=== PATIENT | female | born 1985 | race Caucasian/White ===

== ENCOUNTER 2018-04-09 20:48 | Emergency (ER) | payer MEDICAID ==
[~2018-04-09 20:48] MED LIST: HYDR-4383 PO; IBUP-1984 PO
== END 2018-04-09 21:42 | disposition left against medical advice (07) ==
LOC: ER 20:49
DX: R21 Rash and other nonspecific skin eruption (principal); Z11.3 Encounter for screening for infections with a predominantly sexual mode of transmission; Z53.21 Procedure and treatment not carried out due to patient leaving prior to being seen by health care provider

== ENCOUNTER 2018-05-12 22:48 | Emergency (ER) | payer MEDICAID ==
[~2018-05-12] VITALS: Ht 162.6 cm; Wt 50.6 kg
[2018-05-12] MEDS ORDERED: azithromycin 250mg tablet PO ONE (23:35)
[2018-05-12] MEDS ORDERED: CefTRIAXone 250MG inj IM ONE (23:35)
[2018-05-12] MEDS ORDERED: penicillin G benzathine 1.2 million unit/2ml syringe IM ONE (23:35)
[2018-05-12] MEDS ORDERED: CefTRIAXone 250MG IM Kit w/LIDOcaine IM ONE (23:45)
[2018-05-13 00:19] LABS: CLARITY,URINE CLEAR (Clear); COLOR,URINE YELLOW (Yellow); GLUCOSE, URINE NEGATIVE (Neg); KETONES,URINE NEGATIVE (Neg); LEUKOCYTE ESTERASE ,URINE MODERATE (Neg); NITRITES, URINE NEGATIVE (Neg); OCCULT BLOOD,URINE NEGATIVE (Neg); PROTEIN,URINE NEGATIVE (Neg); UROBILINOGEN,URINE 0.2 E.U/dL (0.2-1.0)
[2018-05-13 00:21] LABS: UA COLLECTION TYPE CLN CATCH MIDSTREAM
[2018-05-13 00:27] LABS: SQUAMOUS EPITHELIAL CELL,UR MODERATE /LPF (FEW)
[2018-05-13 00:28] LABS: BACTERIA,URINE FEW /HPF (Neg); RBC,URINE 0-2 /HPF (0-2); TRICHOMONAS,URINE MOD /HPF (NEGATIVE); WBC,URINE 0-4 /HPF (0-4)
[2018-05-13 00:29] LABS: HIV ANTIBODY 1&2 RAPID NON-REACTIVE (Neg)
[2018-05-13] MEDS ORDERED: METR-159 PO (00:31)
[2018-05-13 00:46] VITALS: BP 116/78
[2018-05-14 08:15] LABS: RPR Reactive (Non Reactive)
== END 2018-05-13 01:13 | disposition home or self-care (01) ==
LOC: ER 22:48
DX: A64 Unspecified sexually transmitted disease (principal); A53.9 Syphilis, unspecified; A59.00 Urogenital trichomoniasis, unspecified; G89.29 Other chronic pain; F11.10 Opioid abuse, uncomplicated; F15.10 Other stimulant abuse, uncomplicated; F17.200 Nicotine dependence, unspecified, uncomplicated; Z90.49 Acquired absence of other specified parts of digestive tract; Z56.0 Unemployment, unspecified; Z88.2 Allergy status to sulfonamides; Z79.899 Other long term (current) drug therapy
CPT/HCPCS: 36415; 81001; 86592; 86703; 87210; 87491; 87591; 96372; 99283; J0561; J0696

== ENCOUNTER 2018-11-01 06:40 | Emergency (ER) | payer MEDICAID ==
[~2018-11-01] VITALS: Ht 162.6 cm; Wt 67.7 kg
[2018-11-01] MEDS ORDERED: CLIN150C8 PO (07:22)
[2018-11-01] MEDS ORDERED: CEPH250T PO (07:22)
[2018-11-01 07:36] VITALS: BP 123/92
[2018-11-01] MEDS ORDERED: NALO4SPR NAS (12:08)
== END 2018-11-01 07:38 | disposition home or self-care (01) ==
LOC: ER 06:42
DX: L03.211 Cellulitis of face (principal); G89.29 Other chronic pain; M54.9 Dorsalgia, unspecified; F15.90 Other stimulant use, unspecified, uncomplicated; F11.90 Opioid use, unspecified, uncomplicated; Z56.0 Unemployment, unspecified; Z88.2 Allergy status to sulfonamides; Z79.899 Other long term (current) drug therapy
CPT/HCPCS: 99283

== ENCOUNTER 2018-11-01 12:00 | Emergency (ER) | payer MEDICAID ==
[~2018-11-01] VITALS: Ht 162.6 cm; Wt 59.1 kg
[~2018-11-01 12:00] MED LIST changes: +CEPH250T PO; +CLIN150C8 PO
[2018-11-01] MEDS ORDERED: NALO4SPR NAS (12:08)
[2018-11-01 12:11] VITALS: BP 139/78
== END 2018-11-01 12:30 ==
LOC: ER 12:01
DX: F11.10 Opioid abuse, uncomplicated (principal); F15.90 Other stimulant use, unspecified, uncomplicated; G89.29 Other chronic pain; M54.9 Dorsalgia, unspecified; Z56.0 Unemployment, unspecified; Z88.2 Allergy status to sulfonamides
CPT/HCPCS: 99283

== ENCOUNTER 2018-11-04 16:21 | Emergency (ER) | payer MEDICAID ==
[~2018-11-04] VITALS: Ht 162.6 cm; Wt 66.9 kg
[~2018-11-04 16:21] MED LIST changes: +NALO4SPR NAS
[2018-11-04 16:28] VITALS: BP 139/94
== END 2018-11-04 17:18 | disposition home or self-care (01) ==
LOC: ER 16:21
DX: L30.9 Dermatitis, unspecified (principal); F42.4 Excoriation (skin-picking) disorder; G89.29 Other chronic pain; F11.90 Opioid use, unspecified, uncomplicated; Z86.14 Personal history of Methicillin resistant Staphylococcus aureus infection; Z90.49 Acquired absence of other specified parts of digestive tract; Z56.0 Unemployment, unspecified; Z88.2 Allergy status to sulfonamides; Z79.2 Long term (current) use of antibiotics; Z79.899 Other long term (current) drug therapy
CPT/HCPCS: 99281

== ENCOUNTER 2018-12-15 17:43 | Emergency (ER) | payer MEDICAID ==
[~2018-12-15] VITALS: Ht 162.6 cm; Wt 66.1 kg
[~2018-12-15 17:43] MED LIST changes: -CEPH250T PO
[2018-12-15 17:50] VITALS: BP 134/90
[2018-12-15] MEDS ORDERED: DOXY100C43 PO (18:29)
[2018-12-15] MEDS ORDERED: CEPH250T PO (18:29)
== END 2018-12-15 18:36 | disposition home or self-care (01) ==
LOC: ER 17:43
DX: M27.2 Inflammatory conditions of jaws (principal); G89.29 Other chronic pain; F15.90 Other stimulant use, unspecified, uncomplicated; F11.90 Opioid use, unspecified, uncomplicated; Z86.14 Personal history of Methicillin resistant Staphylococcus aureus infection; Z90.49 Acquired absence of other specified parts of digestive tract; Z56.0 Unemployment, unspecified; Z88.2 Allergy status to sulfonamides; Z79.899 Other long term (current) drug therapy
CPT/HCPCS: 99283

== ENCOUNTER 2020-09-10 17:36 | Emergency (ER) | payer MEDICAID ==
--- NOTE | 2020-09-10 19:55 | NUR ---
not in lobby. called patient at [id number]. called inside and outside. pt not found
== END 2020-09-10 21:52 | disposition left against medical advice (07) ==
LOC: ER 17:37
DX: R11.10 Vomiting, unspecified (principal); Z53.21 Procedure and treatment not carried out due to patient leaving prior to being seen by health care provider

== ENCOUNTER 2024-11-22 09:04 | Outpatient (CLI) | payer MEDICAID ==
[~2024-11-22 09:04] MED LIST changes: +CLIN-214 PO; -CLIN150C8 PO
[2024-11-22 09:30] LABS: MEAN PLATELET VOLUME 8.4 FL (7.4-10.4); RED CELL DISTRIBUTION WIDTH 14.3 % (11.5-14.5)
[2024-11-22 10:23] LABS: INR > 8.0 INR
== END 2024-11-22 23:59 | disposition home or self-care (01) ==
LOC: RAD 09:04
PROVIDERS: ATTEND Internal Medicine
DX: Z95.4 Presence of other heart-valve replacement (principal)
CPT/HCPCS: 36415; 85025; 85610